=== PATIENT | female | born 1980 | race Two or more races ===

== ENCOUNTER 2025-04-11 10:15 | Day surgery (SDC) | payer MEDICAID, SELFPAY ==
--- NOTE | 2025-04-07 06:27 | EKG_ITS ---
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
[2025-04-07 07:45] VITALS: BMI 30.4
[2025-04-07 09:39] LABS: Alanine Aminotransferase 33 U/L (10-49); Albumin, Serum 4.6 gm/dL (3.5-5.0); Albumin/Globulin Ratio 1.6 (1.2-2.2); Alkaline Phosphatase 136 U/L (46-116); Anion Gap 12 (7-16); Aspartate Amino Transferase 26 U/L (0-34); BUN/Creatinine Ratio 10 Ratio (12-20); Basophils # (Auto) 0.0 Thou/mm3 (0.0-0.2); Basophils % (Auto) 0 % (0-2.5); Bilirubin,Total 0.7 mg/dL (0.3-1.2); Blood Urea Nitrogen 7 mg/dL (9-23); Calcium 10.0 mg/dL (8.3-10.6); Calcium (Corrected) 10.0 mg/dL (8.5-10.1); Carbon Dioxide 27.0 mMol/L (20.0-31.0); Chloride 100 mMol/L (98-107); Creatinine (Component) 0.7 mg/dL (0.6-1.3); Eosinophils # (Auto) 0.1 Thou/mm3 (0.0-0.5); Eosinophils % (Auto) 1 % (0-10); Estimated Creatinine Clearance 106.8 mL/min (>60); Globulin 2.9 gm/dL (2.3-3.5); Glucose 151 mg/dL (74-106); Hematocrit 40.8 % (36.0-46.0); Hemoglobin 13.2 g/dL (12.0-16.0); Immature Granulocytes Auto 0.03 Thou/mm3 (0.00-0.00); Lymphocytes # (Auto) 2.4 Thou/mm3 (1.0-4.8); Lymphocytes % (Auto) 32 % (10-50); Mean Corpuscular HGB Conc 32.4 g/dl (31.0-37.0); Mean Corpuscular Hemoglobin 29.9 pg (25.0-35.0); Mean Corpuscular Volume 92 fL (80-100); Monocytes # (Auto) 0.5 Thou/mm3 (0.0-0.8); Monocytes % (Auto) 6 % (0-12); Neutrophils # (Auto) 4.4 Thou/mm3 (1.8-7.7); Neutrophils % (Auto) 60 % (37-80); Nucleated Red Blood Cell # 0.00 Thou/mm3 (0.00-0.00); Nucleated Red Blood Cell % 0 /100 WBC (0); Osmolality,Calculated 278 (275-295); Platelet Count 230 Thou/mm3 (140-440); Potassium 4.2 mMol/L (3.4-5.1); RDW Standard Deviation 42.1 fL (36.4-46.3); Red Blood Count 4.42 Miln/mm3 (4.00-5.20); Sodium 139 mMol/L (136-145); Total Protein 7.5 gm/dL (5.7-8.2); White Blood Count 7.4 Thou/mm3 (3.6-11.0); eGFR > 60 See Note
[2025-04-11] VITALS (7 sets, daily range): BP systolic 114–124; BP diastolic 75–81; PULSE 79–94; RESP 12–17; TEMP 36.2–36.4; O2SAT 97–100; BMI 30.4
--- NOTE | 2025-04-11 12:23 | SUR.PHASEI ---
pt received from OR in recovery bay 1. pt asleep but responds to voice, breathing unlabored on oxymask 8l. v/s stable. pt dressing to abd dermabond x4 ports cdi. report received from Charles CROSS and Mehdi Montenegro.
[2025-04-11] MEDS: fentaNYL CIT INJ 50 mCg/ML AMP 2ML 25 MCG IVP (12:35)
--- NOTE | 2025-04-11 12:42 | PD.SUROPNT ---
Date of Procedure 04/11/25 Pre Op Diagnosis Symptomatic cholelithiasis Post Op Diagnosis Cholelithiasis with cholecystitis Procedure Laparoscopic cholecystectomy Findings Moderately distended gallbladder with multiple gallstones and chronic cholecystitis. Significant adhesions in the anterior surface of the liver and on the right mid abdomen from her FREIGHT HUSTLER shunt Procedure Description Patient was brought into the operating room in supine position. After administration of general endotracheal anesthesia abdomen was prepped and draped in standard surgical manner. A Veress needle was inserted through the umbilicus and pneumoperitoneum was obtained up to 15 mmHg. The Veress needle was then removed, a 5 mm infraumbilical incision was made and the 5mm trocar was inserted. Laparoscopic camera was placed. Patient was noted to have a FREIGHT HUSTLER shunt and significant adhesions in the right mid abdomen and on the anterior surface of the liver. Under direct visualization a laparoscopic camera and away from the adhesions a 10 mm trocar was placed in subxiphoid and two 5 mm trocars placed in right upper quadrant. The adhesions on anterior surface of the liver were lysed using electrocautery so the gallbladder could be retracted cephalad. The gallbladder was identified and was noted to be moderately distended with multiple gallstones and chronic cholecystitis. It was retracted cephalad and laterally. Dissection started near the infundibulum of gallbladder where cystic duct and gallbladder junction clearly identified. The cystic duct was circumferentially dissected off the peritoneum and surrounding inflammatory tissue. The critical view of safety was clearly demonstrated. Cystic duct was then divided between 2 endoclips proximally and one distally. The cystic artery was similarly dissected and divided. The gallbladder was then from the liver bed using electrocautery. The gallbladder was then placed inside an Endo Catch and removed from the abdomen utilizing subxiphoid trocar site. The area was copiously and thoroughly washed and irrigated, all the fluid was suctioned and the suction fluid returned clear. Hemostasis achieved using electrocautery. Endoclips noted be in place and intact without any bleeding or any leakage. Hemostasis was adequate and satisfactory. The subxiphoid trocar sites fascial defect was closed with 0 Vicryl using Endo Closure device. Instruments and trocars removed, pneumoperitoneum was evacuated and the incisions closed with 4-0 Monocryl in subcuticular fashion. Instrument needle and sponge counts were all reported to be correct X2. Patient tolerated the procedure well, was extubated, breathing spontaneously and without difficulty and was transferred to postanesthesia care in stable condition. Anesthesia GETA and local Pathology / specimen Other (Gallbladder and contents) Estimated Blood Loss 25 Condition Stable Disposition PACU Surgeon Selwyn Hernandez MD Surgical Staff Operation Date: 04/11/25 13:30 Case Staff NUCLEAR CHEMISTRY TECHNICIAN: Sunny Stevenson
--- NOTE | 2025-04-11 13:28 | SUR.PHASEII ---
pt awake and alert, breathing unlabored on room air. v/s stable. pt dressing to abd dermabond x4 cdi. pt able to ambulate to wheelchair with steady gait. d/c instructions given with daughter Agustina in room, all questions answered. pt d/c via wheelchair with all belongings.
== END 2025-04-11 13:28 | disposition home or self-care (01) ==
PROVIDERS: PCP Physician Assistant; Referring Provider Surgery; Visit Provider Surgery
PROC: 0FT44ZZ Resection of Gallbladder, Percutaneous Endoscopic Approach (ICD-10-PCS; CPT 47562; principal; 2025-04-11 13:15)
DX: K80.10 Calculus of gallbladder with chronic cholecystitis without obstruction (principal); Z01.810 Encounter for preprocedural cardiovascular examination
CPT/HCPCS: 47562; 36415; 80053; 85025; 93005; A4217; A4649; J0131; J0694; J1100; J2405; J2704; J3010; J3490; J1805